=== PATIENT | female | born 1940 ===

== ENCOUNTER 2016-12-17 16:23 | Inpatient (IN) | payer MEDICARE ==
--- NOTE | 2016-12-17 17:19 | ED PDOC ---
HPI: Psych/Substance Abuse Time Seen by Provider: 12/17/16 16:25 Chief Complaint (Nursing): Psychiatric Evaluation Chief Complaint (Provider): Psychiatric Evaluation History Per: Patient History/Exam Limitations: no limitations Onset/Duration Of Symptoms: Days Current Symptoms Are (Timing): Still Present Suicide/Self Injury Attempted (Context): None Modifying Factor(s): None Associated Symptoms: Depression, Suicidal Thoughts Involuntary Hold By: None Additional Complaint(s): Patient is a 76 year old female who presents to ED for worsening depression for the last day. Patient reports SI with no plan. Denies HI or Hallucination. Patient with a history of HTN, denies any medial complaints at this time. Past Medical History Reviewed: Historical Data, Nursing Documentation, Vital Signs Vital Signs: Last Vital Signs Temp 97.9 F 12/17/16 16:28 Pulse 84 12/17/16 16:28 Resp 18 12/17/16 16:28 BP 212/117 H 12/17/16 16:28 Pulse Ox 99 12/17/16 16:28 - Medical History PMH: Anxiety, Bronchitis, Depression, HTN, Hypothyroidism, Osteoporosis, Peripheral Edema, Rheumatoid Arthritis Denies: Chronic Kidney Disease - Surgical History Surgical History: Cholecystectomy, Endoscopy - Family History Family History: States: No Known Family Hx - Social History Current smoker - smoking cessation education provided: No Alcohol: None Drugs: Denies - Home Medications Home Medications: Ambulatory Orders Medication Instructions Recorded Amitriptyline HCl 1 tab PO DAILY 06/26/16 Buspirone HCl 1 tab PO BID 06/26/16 Meclizine HCl 1 tab PO BID PRN 06/26/16 Methotrexate 6 tab PO QWK 06/26/16 Olanzapine [Olanzapine Odt] 1 tab PO DAILY 06/26/16 Rivastigmine Tartrate 1 cap PO TID 06/26/16 [Rivastigmine] Valsartan/Hydrochlorothiazide 320 tab PO DAILY 06/26/16 [Valsartan-Hctz 320-25 mg Tab] buPROPion [Wellbutrin] 1 tab PO DAILY 06/26/16 Aspirin [Ecotrin] 1 tab PO DAILY 08/27/16 Calcium Carbonate/Vitamin D3 500 tab PO DAILY 08/27/16 [Calcium 500-Vit D3 200 Caplet] Donepezil HCl [Aricept Odt] 1 tab PO DAILY 08/27/16 Esomeprazole Magnesium [Nexium] 1 cap PO DAILY 08/27/16 Levothyroxine [Synthroid] 88 tab PO DAILY 08/27/16 Lubiprostone [Amitiza] 1 cap PO BID 08/27/16 Memantine HCl [Namenda Xr] 1 cap PO DAILY 08/27/16 Solifenacin Succinate [Vesicare] 1 tab PO BID 08/27/16 Acetaminophen [Tylenol 325mg tab] 650 mg PO Q6 PRN #0 tab 09/05/16 Docusate [Colace] 100 mg PO BID #0 cap 09/05/16 Metronidazole [Flagyl] 500 mg PO BID #14 tablet 09/05/16 oxyCODONE [oxyCODONE Immediate 5 mg PO Q6 PRN #0 tab 09/05/16 Release Tab] - Allergies Allergies/Adverse Reactions: Allergies Allergy/AdvReac Type Severity Reaction Status Date / Time No Known Allergies Allergy Verified 08/27/16 10:20 Review of Systems ROS Statement: Except As Marked, All Systems Reviewed And Found Negative Constitutional: Negative for: Fever Cardiovascular: Negative for: Chest Pain, Palpitations Respiratory: Negative for: Shortness of Breath Gastrointestinal: Negative for: Nausea Neurological: Negative for: Weakness, Numbness, Headache, Dizziness Psych: Positive for: Depression, Suicidal ideation Physical Exam - Reviewed Nursing Documentation Reviewed: Yes Vital Signs Reviewed: Yes - Physical Exam Appears: Positive for: Non-toxic, No Acute Distress Skin: Positive for: Normal Color, Warm Eye Exam: Positive for: Normal appearance Cardiovascular/Chest: Positive for: Regular Rate, Rhythm. Negative for: Murmur Respiratory: Positive for: Normal Breath Sounds. Negative for: Respiratory Distress Gastrointestinal/Abdominal: Positive for: Normal Exam Extremity: Positive for: Normal ROM. Negative for: Pedal Edema Neurologic/Psych: Positive for: Alert, Oriented, Mood/Affect (flat) - Laboratory Results Result Diagrams: 12/17/16 17:45 12/18/16 06:52 - ECG O2 Sat by Pulse Oximetry: 99 (RA) Pulse Ox Interpretation: Normal Medical Decision Making Medical Decision Making: Time: 1710 Initial impression: Psychiatric evaluation Initial plan: -- EKG -- Tylenol level -- Alcohol serum -- CMP -- UDS -- Salicylate -- Crisis eval -- CBC -- 1:1 obs -- U/A Time: 18:04 Patient is medically cleared for psych eval. to be placed in ED Obs secondary to ED workup and crisis eval. Scribe Attestation: Documented by Beth Cheema acting as a scribe for Rachel Puri MD MD Scribe Attestation: All medical record entries made by the Scribe were at my direction and personally dictated by me. I have reviewed the chart and agree that the record accurately reflects my personal performance of the history, physical exam, medical decision making, and the department course for this patient. I have also personally directed, reviewed, and agree with the discharge instructions and disposition. ED OBSERVATION Date of observation admission: 12/17/16 Time of observation admission: 18:04 - Progress Note Progress Note: 18:04 Patient placed in ED Obs secondary to ED workup and crisis eval. 18:35 EKG shows normal sinus rhythm at 78 BPM, rBBB unchanged from prior EKG. Patient medically cleared for crisis eval. 12/18/16 20:00 Disposition - Clinical Impression Clinical Impression: Depression, Anxiety - Patient ED Disposition Is Patient to be Admitted: Transfer of Care - Disposition Disposition: Transfer of Care Disposition Time: 18:04 Condition: STABLE
[2016-12-17 17:56] LABS: BASO % 0.3 % (0.0-2.0); EOS % 0.2 % (0.0-4.0); HEMATOCRIT 39.8 % (34.0-47.0); LYMPH % 9.4 % (20.0-40.0); MEAN CELL VOLUME 87.8 fl (81.0-99.0); MEAN CORPUSCULAR HEMOGLOBIN 28.4 pg (27.0-31.0); MEAN CORPUSCULAR HGB CONC 32.4 g/dL (33.0-37.0); MEAN PLATELET VOLUME 8.5 fl (7.2-11.7); MONO # 0.6 K/uL (0.0-0.8); MONO % 5.7 % (0.0-10.0); NEUT # 9.1 K/uL (1.8-7.0); NEUT % 84.4 % (50.0-75.0); PLATELET COUNT 237 K/uL (130-400); WHITE BLOOD COUNT 10.7 K/uL (4.8-10.8)
[2016-12-17 18:07] LABS: ALCOHOL SERUM < 10 mg/dl (0-10); ALKALINE PHOSPHATASE 99 U/L (38-126); ALT/SGPT 26 U/L (9-52); AST/SGOT 22 U/L (14-36); BILIRUBIN,TOTAL 0.4 mg/dl (0.2-1.3); BLOOD UREA NITROGEN 22 mg/dl (7-17); CALCIUM 10.2 mg/dL (8.4-10.2); CARBON DIOXIDE 27 mmol/L (22-30); CHLORIDE 102 mmol/L (98-107); GFR AFRICAN-AMERICAN > 60; GLUCOSE,RANDOM 151 mg/dL (65-105); POTASSIUM 3.1 MMOL/L (3.6-5.0); SODIUM 145 mmol/l (132-148)
[2016-12-17] MEDS ORDERED: Potassium Chloride 20 mEq ER Tab PO ONE ×2 (18:35→19:50)
[2016-12-17 18:51] LABS: NEUTROPHIL 84 % (42-75); TOTAL CELLS COUNTED 100
[2016-12-17 19:56] LABS: RBC URINE 5 /hpf (0-3); URINE BACTERIA RARE (<OCC); URINE BILIRUBIN NEGATIVE (NEGATIVE); URINE BLOOD NEGATIVE (NEGATIVE); URINE COLOR YELLOW (YELLOW); URINE GLUCOSE (UA) 50 mg/dL (Normal); URINE KETONE NEGATIVE (NEGATIVE); URINE LEUKOCYTE ESTERASE NEG Leu/uL (Negative); URINE PROTEIN NEGATIVE (NEGATIVE); URINE UROBILINOGEN 0.2-1.0 mg/dL (0.2-1.0); WBC URINE 4 /hpf (0-5)
--- NOTE | 2016-12-17 20:58 | ED PDOC ---
- Laboratory Results Result Diagrams: 12/17/16 17:45 12/17/16 17:45 - ECG O2 Sat by Pulse Oximetry: 99 (RA) Medical Decision Making Medical Decision Makin:00 Patient signed over to me by Dr. Rachel Puri pending crisis eval and reevaluation. 21:49 Patient was evaluated by crisis and found to require admission. Patient is medically stable for psychiatric admission. Discussed with Dr. Agosto, will be admitted under her care. Clinical Impression: Depression and Anxiety Disposition Discussed With : Brii Agosto Counseled Patient/Family Regarding: Diagnosis - Clinical Impression Clinical Impression: Depression, Anxiety - POA Present On Arrival: None - Disposition Disposition: Admitted as In-Patient Disposition Time: 21:49
[2016-12-17 21:02] VITALS: BMI 28.7
[2016-12-17 21:52] VITALS: O2SAT 99
[2016-12-17] MEDS ORDERED: Alum-Mag Hydrox-Simethicone Susp (30 mL) PO PRN (22:49)
[2016-12-17] MEDS ORDERED: Bismuth Subsalicylate 262 mg/15 ml Sus (240 ml) PO PRN (22:49)
[2016-12-18] MEDS ORDERED: DiphenhydrAMINE 50 mg/ml Inj IM PRN (00:24)
[2016-12-18 07:21] LABS: IRON 96 ug/dL (37-170)
[2016-12-18 07:24] LABS: BILIRUBIN,TOTAL 0.5 mg/dl (0.2-1.3); CALCIUM 10.1 mg/dL (8.4-10.2); POTASSIUM 3.5 MMOL/L (3.6-5.0); TOTAL PROTEIN 7.7 G/DL (6.3-8.2)
[2016-12-18 07:43] LABS: T4 6.21 ug/dl (5.5-11.0)
[2016-12-18 07:56] LABS: THYROID STIMULATING HORMONE 3.93 mIU/ML (0.46-4.68)
--- NOTE | 2016-12-18 12:09 | PCM.PSYCH ---
Initial Psychiatric Evaluation - Initial Psychiatric Evaluation Type of Admission: Voluntary Legal Status: Capacity Chief Complaint (in patient's own words): "I'm depressed." Patient's Reaction to Hospitalization: HPI: 76 yo female with h/o dementia and depression presents to the ED with depression and suicidal ideation. It is unclear if the patient is compliant with her medications. She continues to have suicidal ideation w/out any specific plan. She reports depressed mood, hopelessness, anxiety. Denies annita /hallucinations/paranoia. Additional collateral history from market research worker: The pt. presents to this ER as a 76 year old female who was referred to the ER by her primary psychiatrist who noted that the pt. presents to be severly depressed. At the time of the assessment the pt. was cooperative and somewhat calm. The pt. exhibited some symptoms of anxiety. The pt.s speech was low tone and slightly slurred. The pt.s mood was depressed and her affect was flat. The pt. reports that she has a history of depression and anxiety. The pt. reports that she takes medications consistently for her diagnosis but is unable to report what she is currently taking. The pt. also reports that she was seen by her psychiatrist today, Hay Krishna ([phone]) who believes that the pt. is suffering from severe depression as per Dr.s note. The pt. reports that she is depressed and has experienced recent/current SI with several plans. The pt. reports that she has thought about cutting her veins. The pt. reports that she has no past history of SA. The pt. reports that she is not sure why she feels the way that she does, but believes it may be because she feels very alone. The pt. reports that she lives alone. The pt. also reports that she has two children that live in [place]. The pt. provided this CW with her son/daughters contact information. The pt. reports that she has no prior admission but does feel that she needs to be admitted at this time. The pt. is unaware of the names of her psychotropic medications. The pt. denied A/V/T hallucinations. The pt. also denied HI. The pt.s thought process appears to be within normal limits and is exclusive of any hallucinations or delusions. The pt. did not provide answers to questions in great detail. The pt. reports that she is a for 20 years now. The pt. reports that she recently had surgery and now has metal plates in her legs. The pt. reports that she is able to sleep, but only with sleeping pills. The pt. reports that she has never seen a therapist. The pt. was alert and oriented X3. The pt.s son, Jeremy Bran [phone], reports that in the last few days the pt. reports that she is not feeling to well, but has never reported that she is experiencing SI. The pt.s son reports that the pt.s mother seems to be changing in personality. The pt.s son reports that the pt. is taking many psychotropic medications and has also noted a change in her mood. The pt.s son reports that the pt. has never attempted to harm herself in the past. The pt.s son reports that his mother may be experiencing memory loss and is unaware if her medications may be contributing to her current mood. The pt.s son reports that the pt. is roman catholic but has not been going to caodaism lately. The pt.s son reports that the pt. does take medications for anxiety and has a history of epileptic seizures. The pt.s son reports that the pt. is taking blood pressure medications in addition. The pt.s son reports that the pt. cannot contract for safety and that she lives alone. The pt.s son reports that the pt. was staying with the pt.s sister for a long time after a recent surgery, suggesting that returning back to her current living situation may be impacting her current state of depression. PPHx: No hx previous psychiatric admission. Currently MD Dr. Hay Juan MHx: Dementia, hypothyroidism, HTN, Hypercholesterolemia, GERD, chronic pain All: NKDA SHx: Uzbek speaking, lives alone, has two children, 4 grandchildren, denies illicit drugs/ etoh Current Medications: Active Medications Generic Name Dose Route Start Last Admin Trade Name Freq PRN Reason Stop Dose Admin Acetaminophen 650 mg 12/17/16 22:49 Tylenol 325mg Tab PO Q4 PRN Pain, moderate (4-7) Al Hydrox/Mg Hydrox/Simethicone 30 ml 12/17/16 22:49 Maalox Plus 30 Ml PO Q4 PRN Dyspepsia Bismuth Subsalicylate 524 mg 12/17/16 22:49 Pepto-Bismol PO Q4 PRN Diarrhea Diphenhydramine HCl 50 mg 12/18/16 00:24 Benadryl PO Q6 PRN Extrapyramidal Symptoms Diphenhydramine HCl 50 mg 12/18/16 00:24 Benadryl IM Q6 PRN Extrapyramidal S/S Unable PO Haloperidol 2 mg 12/18/16 00:24 Haldol PO Q8 PRN Agitation Haloperidol Lactate 2 mg 12/18/16 00:24 Haldol IM Q8 PRN agitation if unable to take po Lorazepam 0.5 mg 12/18/16 00:29 Ativan PO BID PRN Anxiety Magnesium Hydroxide 30 ml 12/17/16 22:49 Milk Of Magnesia PO HS PRN Constipation Past Psychiatric History - Past Psychiatric History Pertinent Medical Hx (Current Medical&Sleep Prob, Allergies): Allergies Allergy/AdvReac Type Severity Reaction Status Date / Time No Known Allergies Allergy Verified 08/27/16 10:20 Amitriptyline HCl 1 tab PO DAILY 06/26/16 Buspirone HCl 1 tab PO BID 06/26/16 Folic Acid 1 tab PO DAILY 06/26/16 Meclizine HCl 1 tab PO BID PRN 06/26/16 Methotrexate 6 tab PO QWK 06/26/16 Olanzapine [Olanzapine Odt] 1 tab PO DAILY 06/26/16 Rivastigmine Tartrate [Rivastigmine] 1 cap PO TID 06/26/16 Valsartan/Hydrochlorothiazide [Valsartan-Hctz 320-25 mg Tab] 1 tab PO DAILY 01/06 buPROPion [Wellbutrin] 1 tab PO DAILY 06/26/16 Aspirin [Ecotrin] 1 tab PO DAILY 08/27/16 Calcium Carbonate/Vitamin D3 [Calcium 500-Vit D3 200 Caplet] 1 tab PO DAILY 02/05 Donepezil HCl [Aricept Odt] 1 tab PO DAILY 08/27/16 Esomeprazole Magnesium [Nexium] 1 cap PO DAILY 08/27/16 Lactulose 1 dose PO PRN PRN 08/27/16 Levothyroxine [Synthroid] 1 tab PO DAILY 08/27/16 Lubiprostone [Amitiza] 1 cap PO BID 08/27/16 Memantine HCl [Namenda Xr] 1 cap PO DAILY 08/27/16 Solifenacin Succinate [Vesicare] 1 tab PO BID 08/27/16 Acetaminophen [Tylenol 325mg tab] 650 mg PO Q6 PRN #0 tab 09/05/16 Docusate [Colace] 100 mg PO BID #0 cap 09/05/16 Ibuprofen [Motrin Tab] 800 mg PO Q6 PRN #0 tab 09/05/16 Metronidazole [Flagyl] 500 mg PO BID #14 tablet 09/05/16 oxyCODONE [oxyCODONE Immediate Release Tab] 5 mg PO Q6 PRN #0 tab 09/05/16 Review of Systems - Review of Systems All systems: reviewed and no additional remarkable complaints except - Psychiatric Psychiatric: As Per HPI, Abnormal Sleep Pattern, Anhedonia, Anxiety, Change in Appetite, Depression, Difficulty Concentrating, Memory Loss, Suicidal Ideation Mental Status Examination - Personal Presentation Personal Presentation: Looks stated age - Affect Affect: Constricted - Motor Activity Motor Activity: Calm - Reliability in Providing Information Reliability in Providing Information: Poor, due to cognitve impairment - Speech Speech: Coherent - Mood Mood: Depressed, Anxious - Formal Thought Process Formal Thought Process: No Impairment - Obsessions/Compulsions Obsessions: No Compulsions: No - Cognitive Functions Orientation: Person, Place, Situation, Time Sensorium: Alert Attention/Concentration: Attentive Estimate of Intelligence: Average Judgement: Intact, as evidence by: Insight regarding need for hospitalization Memory: Recent impaired, as evidenced by: Other (Dementia) - Risk Risk: Suicidal, Diminished functioning - Strength & Assets Inventory Strength & Assets Inventory: Cooperative - Limitations Limitations: Living alone DSM 5 DX - DSM 5 DSM 5 Diagnosis: Major Depressive Disorder, Dementia - Recommended/Plan of Treatment Treatment Recommendations and Plan of Treatment: 76 yo female with h/o depression, anxiety and dementia, p/w worsening depression and suicidal ideation w/ plan, no recent attempt, unclear if patient has been compliant with medications. Plan: -Admit to [facility] -Restart Amitriptyline 100 mg PO HS -Restart Olanzapine at lower dose of 5 mg PO HS as it is unclear if she is consistently taking her medications and denies psychosis -Hold Buspirone -Continue Aricept 5 mg PO HS and Namenda 10 mg PO BID -Medicine consult -PT screening -Psychology consult re: dementia -Linux Systems Engineer attempted to call Dr. Rory Juan for collateral history; left message Projected ELOS: 5-8 days Discharge Plan and Discharge Criteria: Discharge when the patient is psychiatrically stable - Smoking Cessation Smoking Cessation Initiated: No Reason for not providing: Not indicated
--- NOTE | 2016-12-18 13:24 | RAD ---
HISTORY: admit COMPARISON: No prior. FINDINGS: LUNGS: No active pulmonary disease. PLEURA: No significant pleural effusion identified, no pneumothorax apparent. CARDIOVASCULAR: Normal. OSSEOUS STRUCTURES: No significant abnormalities. VISUALIZED UPPER ABDOMEN: Normal. OTHER FINDINGS: None. IMPRESSION: No active disease.
--- NOTE | 2016-12-18 13:58 | CARD ---
APPROVED REPORT EKG Measurement Heart [id number] <Conclusion> Normal sinus rhythm Right bundle branch block Abnormal ECG
--- NOTE | 2016-12-18 20:20 | CP.PCM.CON ---
History of Present Illness - History of Present Illness History of Present Illness: 76 yo female with history of HTN, RA, Hypothyroid and Depression admitted to [facility] because of worsening depression. Review of Systems - Review of Systems All systems: reviewed and no additional remarkable complaints except (aside from those mentioned above, 12 point system review were negative by me) Past Patient History - Past Medical History & Family History Past Medical History?: Yes - Past Social History Smoking Status: Never Smoked Chewing Tobacco Use: No Cigar Use: No Alcohol: None Drugs: Denies Home Situation {Lives}: Alone - CARDIAC Hx Hypertension: Yes Hx Peripheral Edema: Yes - PULMONARY Hx Bronchitis: Yes - HEENT Hx HEENT Problems: Yes (GLASSES) - RENAL Hx Chronic Kidney Disease: No - ENDOCRINE/METABOLIC Hx Hypothyroidism: Yes - HEMATOLOGICAL/ONCOLOGICAL Hx Cancer: No Hx Human Immunodeficiency Virus (HIV): No - INTEGUMENTARY Hx Dermatological Problems: No - MUSCULOSKELETAL/RHEUMATOLOGICAL Hx Osteoporosis: Yes Hx Rheumatoid Arthritis: Yes - GASTROINTESTINAL Hx Gastrointestinal Disorders: Yes Hx Gastroesophageal Reflux: Yes - GENITOURINARY/GYNECOLOGICAL Hx Sexually Transmitted Disorders: No - PSYCHIATRIC Hx Anxiety: Yes Hx Depression: Yes - SURGICAL HISTORY Hx Cholecystectomy: Yes - ANESTHESIA Hx Anesthesia: Yes Hx Anesthesia Reactions: No Hx Malignant Hyperthermia: No Meds Allergies/Adverse Reactions: Allergies Allergy/AdvReac Type Severity Reaction Status Date / Time No Known Allergies Allergy Verified 08/27/16 10:20 - Medications Medications: Current Medications Acetaminophen (Tylenol 325mg Tab) 650 mg PO Q4 PRN PRN Reason: Pain, moderate (4-7) Acetaminophen (Tylenol 325mg Tab) 650 mg PO Q6 PRN PRN Reason: Pain, Mild (1-3) Al Hydrox/Mg Hydrox/Simethicone (Maalox Plus 30 Ml) 30 ml PO Q4 PRN PRN Reason: Dyspepsia Amitriptyline HCl (Elavil) 100 mg PO HS [facility] Aspirin (Ecotrin) 1 mg PO DAILY [facility] Bismuth Subsalicylate (Pepto-Bismol) 524 mg PO Q4 PRN PRN Reason: Diarrhea Calcium/Vitamin D (Oyster Shell Calcium/Vitamin D 500 Mg-200 Iu) 500 tab PO DAILY [facility] Diphenhydramine HCl (Benadryl) 50 mg PO Q6 PRN PRN Reason: Extrapyramidal Symptoms Diphenhydramine HCl (Benadryl) 50 mg IM Q6 PRN PRN Reason: Extrapyramidal S/S Unable PO Docusate Sodium (Colace) 100 mg PO BID [facility] Donepezil HCl (Aricept) 5 mg PO HS [facility] Haloperidol (Haldol) 2 mg PO Q8 PRN PRN Reason: Agitation Haloperidol Lactate (Haldol) 2 mg IM Q8 PRN PRN Reason: agitation if unable to take po Home Med (Solifenacin Succinate [Vesicare]) 1 tab PO BID [facility] Home Med (Valsartan/Hydrochlorothiazide [Valsartan-Hctz 320-25 Mg Tab]) 320 tab PO DAILY [facility] Levothyroxine Sodium (Synthroid) 88,000 mcg PO DAILY [facility] Lorazepam (Ativan) 0.5 mg PO BID PRN PRN Reason: Anxiety Magnesium Hydroxide (Milk Of Magnesia) 30 ml PO HS PRN PRN Reason: Constipation Memantine (Namenda) 10 mg PO BID [facility] Last Admin: 12/18/16 17:46 Dose: 10 mg Methotrexate (Methotrexate) 6 mg PO QWK [facility] PRN Reason: Protocol Olanzapine (Zyprexa) 5 mg PO HS [facility] Physical Exam - Constitutional Appears: No Acute Distress - Head Exam Head Exam: ATRAUMATIC - Eye Exam Eye Exam: absent: Scleral icterus - ENT Exam ENT Exam: Mucous Membranes Moist - Neck Exam Neck exam: Negative for: Meningismus - Respiratory Exam Respiratory Exam: absent: Rhonchi, Wheezes, Respiratory Distress - Cardiovascular Exam Cardiovascular Exam: REGULAR RHYTHM, +S1, +S2 - GI/Abdominal Exam GI & Abdominal Exam: Soft. absent: Tenderness - Rectal Exam Rectal Exam: Deferred - Extremities Exam Extremities exam: Positive for: pedal edema. Negative for: calf tenderness - Neurological Exam Neurological exam: Alert, Oriented x3 - Psychiatric Exam Psychiatric exam: Normal Affect - Skin Skin Exam: Dry, Intact Results - Vital Signs Recent Vital Signs: Last Vital Signs Temp 98.6 F 12/18/16 15:39 Pulse 81 12/18/16 15:39 Resp 18 12/18/16 15:39 BP 136/76 12/18/16 15:39 Pulse Ox 99 12/18/16 20:01 - Labs Result Diagrams: 12/17/16 17:45 12/18/16 06:52 Labs: Laboratory Results - last 24 hr 12/18/16 06:52 Sodium 147 Potassium 3.5 L Chloride 103 Carbon Dioxide 30 Anion Gap 18 BUN 20 H Creatinine 1.1 Est GFR ( Amer) 59 Est GFR (Non-Af Amer) 48 Random Glucose 97 Hemoglobin A1c 6.1 Calcium 10.1 Iron 96 TIBC 369 % Saturation 26 Ferritin 12.8 Total Bilirubin 0.5 AST 23 ALT 23 Alkaline Phosphatase 88 Total Protein 7.7 Albumin 3.9 Globulin 3.9 Albumin/Globulin Ratio 1.0 Triglycerides 79 Cholesterol 153 LDL Cholesterol Direct 55 HDL Cholesterol 70 Vitamin B12 304 Free T4 0.90 Thyroxine (T4) 6.21 TSH 3rd Generation 3.93 RPR Nonreactive Assessment & Plan (1) Depression Status: Acute Comment: psyche is managing (2) HTN (hypertension) Status: Chronic Comment: BP stable. Valsartan 320mg PO daily. HCTZ 25mg PO daily (3) Rheumatoid arthritis Status: Acute - Assessment and Plan (Free Text) Assessment: continue Methotrexate 15mg PO once a week.
[2016-12-18] MEDS ORDERED: Potassium Chloride 20 mEq ER Tab PO ONE (20:39)
[2016-12-18 22:34] LABS: FOLATE 7.5 ng/mL
[2016-12-19 07:26] LABS: CALCIUM 9.6 mg/dL (8.4-10.2); POTASSIUM 4.2 MMOL/L (3.6-5.0)
[2016-12-19] MEDS: Calcium-Vit D 500 mg-200 Units Tab UD PO SCH (08:38)
[2016-12-19] MEDS ORDERED: HYDROCHLOROTHIAZIDE PO SCH (09:00)
[2016-12-19] MEDS ORDERED: [UNRECOGNIZED DRUG - OTHER] PO SCH (09:00)
[2016-12-19] MEDS ORDERED: SOLIFENACIN SUCCINATE PO SCH (09:00)
[2016-12-19] MEDS: Levothyroxine 88 MCG TAB PO SCH (09:00)
[2016-12-19] MEDS ORDERED: VALSARTAN PO SCH (09:00)
--- NOTE | 2016-12-19 11:43 | PCM.PYCHPN ---
Psychiatric Progress Note - Psychiatric Progress Note Patient seen today, length of contact: Patient evaluated, case discussed with team, chart reviewed, 35 min Patient Chief Complaint: "I'm not suicidal anymore" Problems Identified/Issues Discussed: Patient reports that she no longer has suicidal ideation. She believes that her depression is improving in the setting of the hospital. She denies acute complaints. She does report that she has difficulty with her memory and has done things in the past, like forgotten to turn off her stove, but denies having done this recently. NO AH/VH/paranoia. She reports improved sleep. Line Analyst spoke with the patient's primary psychiatrist, Dr. Rory Juan who states that the patient does not normally express suicidal ideation and that he believes that she may not be compliant with her medications at times due to her memory issues. We discussed her current medications and treatment. Medication Change: No Medical Record Reviewed: Yes Mental Status Examination - Cognitive Function Orientation: Person, Place, Situation, Time Memory: Impaired (Dementia) Attention: WNL Concentration: WNL Association: WNL Fund of Knowledge: WN Decription of patient's judgement and insights: Fair I/J - Mood Mood: Depressed - Affect Affect: Constricted - Speech Speech: Appropriate - Formal Thought Process Formal Thought Process: No Impairment Psychotic Thoughts and Behaviors: NO AH/VH/paranoia - Suicidal Ideation Suicidal Ideation: No - Homicidal Ideation Homicidal Ideation: No Goal/Treatment Plan - Goal/Treatment Plan Need for Continued Stay: Remain at risks for inpatient hospitalization, Severe depression anxiety, Discharge may exacerbated symptoms Progress Toward Problem(s) and Goals/Treatment Plan: 76 yo female with h/o depression, anxiety and dementia, presented with worsening depression and suicidal ideation w/ plan, in the context of likely medication non-compliance. She is no longer reporting suicidal ideation and states that her mood is starting to improve. Plan: -Continue Amitriptyline 100 mg PO HS -Continue Olanzapine 5 mg PO HS -Hold Buspirone -Continue Aricept 5 mg PO HS and Namenda 10 mg PO BID -Medicine consult -PT screening -Psychology consult re: dementia Estimated Date of D/C: 12/24/16 - Smoking Cessation Smoking Cessation Initiated: No Reason for not providing: Not indicated
--- NOTE | 2016-12-20 08:31 | PCM.PYCHPN ---
Psychiatric Progress Note - Psychiatric Progress Note Patient seen today, length of contact: Patient evaluated, case discussed with team, chart reviewed, 35 min Patient Chief Complaint: "I'm feeling better" Problems Identified/Issues Discussed: Patient reports that her depression is improving and she no longer has suicidal ideation/plan/intent. She has been participating in individual and group therapy and engages appropriately with staff and peers. She reports improved sleep and appetite. NO AH/VH/paranoia. Medication Change: No Medical Record Reviewed: Yes Mental Status Examination - Cognitive Function Orientation: Person, Place, Situation, Time Memory: Impaired (Dementia) Attention: WNL Concentration: WNL Association: WN Fund of Knowledge: [facility] Decription of patient's judgement and insights: Fair I/J - Mood Mood: Depressed - Affect Affect: Constricted - Speech Speech: Appropriate - Formal Thought Process Formal Thought Process: No Impairment Psychotic Thoughts and Behaviors: NO AH/VH/paranoia - Suicidal Ideation Suicidal Ideation: No - Homicidal Ideation Homicidal Ideation: No Goal/Treatment Plan - Goal/Treatment Plan Need for Continued Stay: Remain at risks for inpatient hospitalization, Severe depression anxiety, Discharge may exacerbated symptoms Progress Toward Problem(s) and Goals/Treatment Plan: 76 yo female with h/o depression, anxiety and dementia, presented with worsening depression and suicidal ideation w/ plan, in the context of likely medication non-compliance. She is no longer reporting suicidal ideation and states that her mood is starting to improve, likely due to restabilizing on her medications. Plan: -Continue Amitriptyline 100 mg PO HS -Continue Olanzapine 5 mg PO HS -Continue Aricept 5 mg PO HS and Namenda 10 mg PO BID -Medicine consult appreciated -Psychology consult re: dementia Estimated Date of D/C: 12/24/16 - Smoking Cessation Smoking Cessation Initiated: No Reason for not providing: Not indicated
[2016-12-20] MEDS: Calcium-Vit D 500 mg-200 Units Tab UD PO SCH (09:33)
[2016-12-20] MEDS: Levothyroxine 88 MCG TAB PO SCH (09:33)
[2016-12-21] MEDS: Magnesium Hydroxide Susp 30 ml UD PO PRN (07:00)
[2016-12-21] MEDS: Calcium-Vit D 500 mg-200 Units Tab UD PO SCH (08:54)
[2016-12-21] MEDS: Levothyroxine 88 MCG TAB PO SCH (08:55)
--- NOTE | 2016-12-21 10:48 | CP.PCM.CON ---
History of Present Illness - History of Present Illness History of Present Illness: Pt is a 76 year old female admitted to [facility] and referred to the ad copy writer for [facility]. On the DRS, Pt scored an overall score of 95>. She scored in the Deficient Range on all tasks. Pt's memory, initiation, construction, conceptualization, and attention skills all fell in the deficient range. Pt acknowledged significant memory deficits on evaluation consistent with the test results. 24 hour care reccomended Overall 95 Attention 22 Construction 2 Memory 10 Initiation 20 Conceptualization 16 Past Patient History - Past Medical History & Family History Past Medical History?: Yes - Past Social History Smoking Status: Never Smoked Chewing Tobacco Use: No Cigar Use: No Alcohol: None Drugs: Denies Home Situation {Lives}: Alone - CARDIAC Hx Hypertension: Yes Hx Peripheral Edema: Yes - PULMONARY Hx Bronchitis: Yes - HEENT Hx HEENT Problems: Yes (GLASSES) - RENAL Hx Chronic Kidney Disease: No - ENDOCRINE/METABOLIC Hx Hypothyroidism: Yes - HEMATOLOGICAL/ONCOLOGICAL Hx Cancer: No Hx Human Immunodeficiency Virus (HIV): No - INTEGUMENTARY Hx Dermatological Problems: No - MUSCULOSKELETAL/RHEUMATOLOGICAL Hx Osteoporosis: Yes Hx Rheumatoid Arthritis: Yes - GASTROINTESTINAL Hx Gastrointestinal Disorders: Yes Hx Gastroesophageal Reflux: Yes - GENITOURINARY/GYNECOLOGICAL Hx Sexually Transmitted Disorders: No - PSYCHIATRIC Hx Anxiety: Yes Hx Depression: Yes - SURGICAL HISTORY Hx Cholecystectomy: Yes - ANESTHESIA Hx Anesthesia: Yes Hx Anesthesia Reactions: No Hx Malignant Hyperthermia: No Meds Allergies/Adverse Reactions: Allergies Allergy/AdvReac Type Severity Reaction Status Date / Time No Known Allergies Allergy Verified 08/27/16 10:20 - Medications Medications: Current Medications Acetaminophen (Tylenol 325mg Tab) 650 mg PO Q4 PRN PRN Reason: Pain, moderate (4-7) Acetaminophen (Tylenol 325mg Tab) 650 mg PO Q6 PRN PRN Reason: Pain, Mild (1-3) Al Hydrox/Mg Hydrox/Simethicone (Maalox Plus 30 Ml) 30 ml PO Q4 PRN PRN Reason: Dyspepsia Amitriptyline HCl (Elavil) 100 mg PO HS [facility] Last Admin: 12/20/16 21:10 Dose: 100 mg Aspirin (Ecotrin) 81 mg PO DAILY [facility] Last Admin: 12/21/16 08:55 Dose: 81 mg Bismuth Subsalicylate (Pepto-Bismol) 524 mg PO Q4 PRN PRN Reason: Diarrhea Calcium/Vitamin D (Oyster Shell Calcium/Vitamin D 500 Mg-200 Iu) 500 tab PO DAILY [facility] Last Admin: 12/21/16 08:54 Dose: 500 tab Diphenhydramine HCl (Benadryl) 50 mg PO Q6 PRN PRN Reason: Extrapyramidal Symptoms Diphenhydramine HCl (Benadryl) 50 mg IM Q6 PRN PRN Reason: Extrapyramidal S/S Unable PO Docusate Sodium (Colace) 100 mg PO BID [facility] Last Admin: 12/21/16 08:55 Dose: 100 mg Donepezil HCl (Aricept) 5 mg PO HS [facility] Last Admin: 12/20/16 21:10 Dose: 5 mg Haloperidol (Haldol) 2 mg PO Q8 PRN PRN Reason: Agitation Haloperidol Lactate (Haldol) 2 mg IM Q8 PRN PRN Reason: agitation if unable to take po Home Med (Solifenacin Succinate [Vesicare]) 1 tab PO BID [facility] Last Admin: 12/19/16 19:09 Dose: Not Given Home Med (Valsartan/Hydrochlorothiazide [Valsartan-Hctz 320-25 Mg Tab]) 320 tab PO DAILY [facility] Last Admin: 12/19/16 09:00 Dose: 320 tab Hydrochlorothiazide (Hydrodiuril) 25 mg PO DAILY [facility] Last Admin: 12/21/16 08:56 Dose: 25 mg Levothyroxine Sodium (Synthroid) 88 mcg PO DAILY@0630 [facility] Last Admin: 12/21/16 08:55 Dose: 88 mcg Lorazepam (Ativan) 0.5 mg PO BID PRN PRN Reason: Anxiety Magnesium Hydroxide (Milk Of Magnesia) 30 ml PO HS PRN PRN Reason: Constipation Last Admin: 12/21/16 07:00 Dose: 30 ml Memantine (Namenda) 10 mg PO BID [facility] Last Admin: 12/21/16 08:56 Dose: 10 mg Methotrexate (Methotrexate) 6 mg PO QWK [facility] PRN Reason: Protocol Olanzapine (Zyprexa) 5 mg PO HS [facility] Last Admin: 12/20/16 21:10 Dose: 5 mg Tolterodine Tartrate (Detrol) 2 mg PO BID [facility] Last Admin: 12/21/16 08:57 Dose: 2 mg Valsartan (Diovan) 320 mg PO DAILY [facility] Last Admin: 12/21/16 08:57 Dose: 320 mg Results - Vital Signs Recent Vital Signs: Last Vital Signs Temp 97.2 F L 12/21/16 06:00 Pulse 80 12/21/16 06:00 Resp 18 12/21/16 06:00 BP 122/75 12/21/16 06:00 Pulse Ox 99 12/18/16 20:01 - Labs Result Diagrams: 12/17/16 17:45 12/19/16 06:58
[2016-12-21 12:09] LABS: AMITRIPTYLINE 70 mcg/L (()); NORTRIPTYLINE 48 mcg/L (())
--- NOTE | 2016-12-21 18:44 | PCM.PYCHPN ---
Psychiatric Progress Note - Psychiatric Progress Note Patient seen today, length of contact: chart reviewed case discussed with team Patient Chief Complaint: feeling depressed not suicidal having memory problems Problems Identified/Issues Discussed: changes in mood changes in self care changes in memory Medical Problems: per chart Diagnostic Results: per psychiatry per psychology per nursing per social work per recreational therapy Medication Change: No Medical Record Reviewed: Yes Mental Status Examination - Cognitive Function Orientation: Person, Place, Situation, Time Memory: Impaired (Dementia) Attention: WNL Concentration: WNL Association: WNL Fund of Knowledge: WN Decription of patient's judgement and insights: impaired - Mood Mood: Depressed - Affect Affect: Constricted - Speech Speech: Appropriate - Formal Thought Process Formal Thought Process: No Impairment - Suicidal Ideation Suicidal Ideation: No - Homicidal Ideation Homicidal Ideation: No Goal/Treatment Plan - Goal/Treatment Plan Need for Continued Stay: Remain at risks for inpatient hospitalization, Severe depression anxiety, Discharge may exacerbated symptoms Progress Toward Problem(s) and Goals/Treatment Plan: inpt milieu adjust medications per clinical status vital signs and clinical assessment per protocol and per status falls precautions discharge planning in progress Estimated Date of D/C: 12/24/16 - Smoking Cessation Smoking Cessation Initiated: No Reason for not providing: deferred
[2016-12-22] MEDS: Calcium-Vit D 500 mg-200 Units Tab UD PO SCH (09:24)
[2016-12-22] MEDS: Levothyroxine 88 MCG TAB PO SCH (09:26)
--- NOTE | 2016-12-22 12:38 | PCM.PYCHPN ---
Psychiatric Progress Note - Psychiatric Progress Note Patient seen today, length of contact: chart reviewed case discussed with team Patient Chief Complaint: pt is less depressed anmd less anxious and doing well on meds Problems Identified/Issues Discussed: pt was admitted for depresion and anxiety DSM 5 Symptoms Update: major depression Medication Change: No Medical Record Reviewed: Yes Mental Status Examination - Cognitive Function Orientation: Person, Place, Situation, Time Memory: Impaired (Dementia) Attention: WNL Concentration: WNL Association: WNL Fund of Knowledge: WNL - Mood Mood: Depressed - Affect Affect: Constricted - Speech Speech: Appropriate - Formal Thought Process Formal Thought Process: No Impairment - Suicidal Ideation Suicidal Ideation: No - Homicidal Ideation Homicidal Ideation: No Goal/Treatment Plan - Goal/Treatment Plan Need for Continued Stay: Remain at risks for inpatient hospitalization, Severe depression anxiety, Discharge may exacerbated symptoms Progress Toward Problem(s) and Goals/Treatment Plan: willcontinue tp adjust the meds as needd to stabilize the pt Estimated Date of D/C: 12/24/16
[2016-12-22] MEDS: Magnesium Hydroxide Susp 30 ml UD PO PRN (16:46)
[2016-12-23] MEDS: Levothyroxine 88 MCG TAB PO SCH (09:18)
[2016-12-23] MEDS: Calcium-Vit D 500 mg-200 Units Tab UD PO SCH (09:18)
--- NOTE | 2016-12-23 14:34 | PCM.PYCHPN ---
Psychiatric Progress Note - Psychiatric Progress Note Patient seen today, length of contact: chart reviewed case discussed with team Patient Chief Complaint: pt is less depressed anmd less anxious and doing well on meds.mood is stable on zyprexa . Problems Identified/Issues Discussed: pt was admitted for depresion and anxiety DSM 5 Symptoms Update: major depression r/o bipolar disorder Medication Change: No Medical Record Reviewed: Yes Mental Status Examination - Cognitive Function Orientation: Person, Place, Situation, Time Memory: Impaired (Dementia) Attention: WNL Concentration: WNL Association: WNL Fund of Knowledge: WNL - Mood Mood: Depressed - Affect Affect: Constricted - Speech Speech: Appropriate - Formal Thought Process Formal Thought Process: No Impairment - Suicidal Ideation Suicidal Ideation: No - Homicidal Ideation Homicidal Ideation: No Goal/Treatment Plan - Goal/Treatment Plan Need for Continued Stay: Remain at risks for inpatient hospitalization, Severe depression anxiety, Discharge may exacerbated symptoms Progress Toward Problem(s) and Goals/Treatment Plan: will continue tp adjust the meds as needed to stabilize the pt pt is tolerating zyprexa very well Estimated Date of D/C: 12/24/16
[2016-12-24] MEDS: Levothyroxine 88 MCG TAB PO SCH (08:54)
[2016-12-24] MEDS: Calcium-Vit D 500 mg-200 Units Tab UD PO SCH (08:55)
[2016-12-24 15:29] VITALS: BP 123/48; PULSE 86; RESP 19; TEMP 97.6
--- NOTE | 2016-12-24 18:55 | PCM.PYCHDC ---
Mental Status Examination - Mental Status Examination Orientation: Person, Place, Situation, Time Memory: Intact Mood: Depressed Affect: Broad Speech: Appropriate, Soft Attention: WNL Concentration: WNL Association: WNL Fund of Knowledge: WNL Formal Thought Process: No Impairment Description of patient's judgement and insight: improved Psychotic Thoughts and Behaviors: resolved Suicidal Ideation: No Discharge Summary - Discharge Note Reason for Hospitalization: depression decreased energy paranoia which reportedly resolved Psychiatric History (includes Medical, Family, Personal Hx): previously treated private psychiatrist in community dr. christensen Laboratory Data: per chart Consultations:: List each consultation separately and include: 1. Reason for request. 2. Findings. 3. Follow-up Consultations: hospitalist Summary of Hospital Course include:: 1. Description of specific treatment plan utilized for patients during their course of treatmen. 2. Summarize the time- course for resolution of acute symptoms and/or regressed behaviors. 3. Describe issues identified and worked on during hospitalization. 4. Describe medication utilized. 5. Describe medical problems identified and treated. 6. Reassessment of suicide risk Summary of Hospital Course: voluntary admission via [facility] for s/s depression with suicidal ideations and paranoia, medications adjusted per clinical status and patient participated in milieu therapy activities. paranoia and depression began resolve /stabilize with minimal reported side effects. pt was seen and evaluated by hospitalist. discharge planning was completed by team with referral to community based psychiatrist-dr christensen in two weeks. pt verbalized that suicidal ideations resolved Expressed family as leverage and wanting to continue treatment in community. - Diagnosis (1) Anxiety Current Visit: Yes Status: Acute Priority: Medium (2) Depression Current Visit: Yes Status: Acute Priority: Medium - Final Diagnosis (DSM 5) Condition upon Discharge: GOOD Disposition: HOME/ ROUTINE Follow-up Treatment Plan: pt to be discharged per attending pt to follow up dr. christensen within two weeks two weeks of medications called to [facility] [phone] (pt has refill of methotrexate per pharmacy) crisis plan [phone] [place] spoken treatment plan reviewed pt verbally agreeable - Smoking Cessation Smoking Cessation Medication prescribed: No Reason for not providing: pt deferred
[2016-12-25] MEDS ORDERED: Calcium-Vit D 500 mg-200 Units Tab UD PO SCH (09:00)
== END 2016-12-24 20:30 | disposition home or self-care (01) | DRG 881 ==
LOC: H.ER 16:23 → H.EROBSV 18:04 → OBSVTOIN 18:04 → H.ERHOLD 21:37 → H.STEP 22:32
PROVIDERS: ADMIT Emergency Medicine; ATTEND Psychiatry & Neurology Psychiatry
PROC: GZHZZZZ Group Psychotherapy (ICD-10-PCS; principal; 2016-12-17)
DX: F32.9 Major depressive disorder, single episode, unspecified (principal); F03.90 Unspecified dementia, unspecified severity, without behavioral disturbance, psychotic disturbance, mood disturbance, and anxiety; R45.851 Suicidal ideations; M06.9 Rheumatoid arthritis, unspecified; E03.9 Hypothyroidism, unspecified; E78.00 Pure hypercholesterolemia, unspecified; F41.9 Anxiety disorder, unspecified; I10 Essential (primary) hypertension; K21.9 Gastro-esophageal reflux disease without esophagitis; M81.0 Age-related osteoporosis without current pathological fracture; Z91.14 Patient's other noncompliance with medication regimen; G89.29 Other chronic pain